=== PATIENT | female | born 1995 | race Caucasian/White ===

== ENCOUNTER → 2017-09-28 | Outpatient (CLI) | payer OTHER ==
[~2017-09-28] MED LIST: METR-1 PO; PREN29TA PO; ZITH1POW PO; ZOFR4TAB PO
== END ==
LOC: HPND 14:11
PROVIDERS: ATTEND Obstetrics & Gynecology
DX: O99.212 Obesity complicating pregnancy, second trimester (principal); E66.01 Morbid (severe) obesity due to excess calories; Z68.41 Body mass index [BMI] 40.0-44.9, adult; O99.322 Drug use complicating pregnancy, second trimester; O34.211 Maternal care for low transverse scar from previous cesarean delivery
CPT/HCPCS: 76811

== ENCOUNTER → 2017-10-27 | Outpatient (CLI) | payer OTHER | LOC: HPND 12:27 | PROVIDERS: ATTEND Obstetrics & Gynecology | DX: O99.322 Drug use complicating pregnancy, second trimester (principal); O99.212 Obesity complicating pregnancy, second trimester; E66.01 Morbid (severe) obesity due to excess calories; Z68.41 Body mass index [BMI] 40.0-44.9, adult; O34.211 Maternal care for low transverse scar from previous cesarean delivery | CPT/HCPCS: 76816; 76825; 76827; 93325 ==

== ENCOUNTER → 2017-12-06 | Outpatient (CLI) | payer OTHER | LOC: HPND 08:32 | PROVIDERS: ATTEND Obstetrics & Gynecology | DX: O99.213 Obesity complicating pregnancy, third trimester (principal); E66.01 Morbid (severe) obesity due to excess calories; Z68.41 Body mass index [BMI] 40.0-44.9, adult; O35.1XX0 Maternal care for (suspected) chromosomal abnormality in fetus, not applicable or unspecified | CPT/HCPCS: 76816 ==

== ENCOUNTER 2017-12-29 13:30 | Observation (INO) ==
[2018-01-01] MEDS ORDERED: CEFTRIAXONE 2000 MG ONE (23:30)
[2018-01-02] MEDS ORDERED: Acetaminophen 325 MG Tablet PO PRN
[2018-01-02] MEDS: Gentamicin Inj 80 MG in Sodium Chlor 0.9% Inj 100 ML IV.SIG SCH ×3 (04:58→20:26)
--- NOTE | 2018-01-02 08:05 | P.OBANTE ---
Subjective Interval History: No acute events overnight. Patient's highest temperature over the last 24 hours is 99.2. Her heart rate is continued to be elevated in the 100s. She states that she feels somewhat better today but still has left flank/left-sided abdominal pain. Otherwise she has no dysuria, chest pain, shortness of breath, nausea or vomiting. Objective Vital Signs and I&O: Vital Signs 01/02/18 05:02 01/02/18 05:03 01/02/18 07:43 Temperature 100.0 F H 99.0 F 98.7 F Pulse Rate 104 H Respiratory Rate 15 16 Blood Pressure 107/41 L 01/02/18 07:50 Temperature Pulse Rate 104 H Respiratory Rate Blood Pressure 93/48 L Intake & Output 01/01/18 01/02/18 01/02/18 18:59 06:59 18:59 Intake Total 102 / 102 Balance 102 / 102 Weight 112 kg Intake: IV 102 / 102 Gentamicin Inj 80 MG In NS Inj 102 / 102 100 ML @ 102 mls/hr IV.SIG Q8H [facility] Rx#:[id number] Lab and Micro Results: Laboratory Results - last 24 hr 12/29/17 12/29/17 12/29/17 10:44 10:44 10:44 WBC 12.6 H RBC 3.59 L Hgb 9.8 L Hct 29.3 L MCV 81.7 MCH 27.4 MCHC 33.5 RDW 15.0 Plt Count 227 MPV 8.0 Neut % (Auto) 78.8 H Lymph % (Auto) 13.8 Pepin % (Auto) 7.0 Eos % (Auto) 0.2 Baso % (Auto) 0.2 Neut # (Auto) 10.0 H Lymph # (Auto) 1.7 Pepin # (Auto) 0.9 Eos # (Auto) 0.0 Baso # (Auto) 0.0 CBC Comment DIFF FINAL Sodium 139 Potassium 3.7 Chloride 108 H Carbon Dioxide 20.0 L Anion Gap 11 BUN 5 L Creatinine 0.56 Estimated GFR 137 Random Glucose 60 L Lactic Acid Calcium 8.4 L Total Bilirubin 0.6 AST 12 L ALT 9 L Alkaline Phosphatase 121 H Total Protein 6.7 Albumin 2.7 L Nasal Screen MRSA (PCR) Urine Opiates Screen NEG Ur Buprenorphine NEG Heroin Level NEG Oxycodone NEG Ur Methadone NEG Ur Hydromorphone NEG Urine Fentanyl NEG Ur Barbiturates Screen NEG Urine Gabapentin NEG Ur Phencyclidine (PCP) NEG Ur MDPV + Mephedrone NEG Ur Amphetamines Screen NEG Ur MDMA & Metabolites NEG U Benzodiazepines Scrn NEG Urine Cocaine Screen NEG U Cannabinoids Screen POS H U Cannabinoids Confirm POS H Ur Synth THC (K2) NEG 12/29/17 12/29/17 12/30/17 15:00 15:02 05:35 WBC RBC Hgb Hct MCV MCH MCHC RDW Plt Count MPV Neut % (Auto) Lymph % (Auto) Pepin % (Auto) Eos % (Auto) Baso % (Auto) Neut # (Auto) Lymph # (Auto) Pepin # (Auto) Eos # (Auto) Baso # (Auto) CBC Comment Sodium 139 Potassium 3.3 L Chloride 107 Carbon Dioxide 20.7 L Anion Gap 11 BUN 3 L Creatinine 0.61 Estimated GFR 124 Random Glucose 93 Lactic Acid 2.0 Calcium 7.5 L D Total Bilirubin AST ALT Alkaline Phosphatase Total Protein Albumin Nasal Screen MRSA (PCR) MRSA NOT DETECTED Urine Opiates Screen Ur Buprenorphine Heroin Level Oxycodone Ur Methadone Ur Hydromorphone Urine Fentanyl Ur Barbiturates Screen Urine Gabapentin Ur Phencyclidine (PCP) Ur MDPV + Mephedrone Ur Amphetamines Screen Ur MDMA & Metabolites U Benzodiazepines Scrn Urine Cocaine Screen U Cannabinoids Screen U Cannabinoids Confirm Ur Synth THC (K2) 12/30/17 12/30/17 12/30/17 05:35 15:10 15:10 WBC 11.1 H 10.4 RBC 3.29 L 3.28 L Hgb 8.9 L 8.8 L Hct 26.7 L 26.4 L MCV 81.1 80.7 MCH 27.2 26.8 L MCHC 33.5 33.2 RDW 15.3 15.1 Plt Count 179 174 MPV 7.9 7.7 Neut % (Auto) 79.8 H Lymph % (Auto) 11.6 Pepin % (Auto) 8.3 H Eos % (Auto) 0.1 Baso % (Auto) 0.2 Neut # (Auto) 8.3 H Lymph # (Auto) 1.2 Pepin # (Auto) 0.9 Eos # (Auto) 0.0 Baso # (Auto) 0.0 CBC Comment DIFF FINAL Sodium Potassium Chloride Carbon Dioxide Anion Gap BUN Creatinine Estimated GFR Random Glucose Lactic Acid 1.4 Calcium Total Bilirubin AST ALT Alkaline Phosphatase Total Protein Albumin Nasal Screen MRSA (PCR) Urine Opiates Screen Ur Buprenorphine Heroin Level Oxycodone Ur Methadone Ur Hydromorphone Urine Fentanyl Ur Barbiturates Screen Urine Gabapentin Ur Phencyclidine (PCP) Ur MDPV + Mephedrone Ur Amphetamines Screen Ur MDMA & Metabolites U Benzodiazepines Scrn Urine Cocaine Screen U Cannabinoids Screen U Cannabinoids Confirm Ur Synth THC (K2) 12/31/17 08:29 WBC RBC Hgb Hct MCV MCH MCHC RDW Plt Count MPV Neut % (Auto) Lymph % (Auto) Pepin % (Auto) Eos % (Auto) Baso % (Auto) Neut # (Auto) Lymph # (Auto) Pepin # (Auto) Eos # (Auto) Baso # (Auto) CBC Comment Sodium Potassium Chloride Carbon Dioxide Anion Gap BUN Creatinine 0.52 Estimated GFR 149 Random Glucose Lactic Acid Calcium Total Bilirubin AST ALT Alkaline Phosphatase Total Protein Albumin Nasal Screen MRSA (PCR) Urine Opiates Screen Ur Buprenorphine Heroin Level Oxycodone Ur Methadone Ur Hydromorphone Urine Fentanyl Ur Barbiturates Screen Urine Gabapentin Ur Phencyclidine (PCP) Ur MDPV + Mephedrone Ur Amphetamines Screen Ur MDMA & Metabolites U Benzodiazepines Scrn Urine Cocaine Screen U Cannabinoids Screen U Cannabinoids Confirm Ur Synth THC (K2) Physical Exam: GENERAL: Well-nourished, well-developed patient. CARDIOVASCULAR: Regular rate and rhythm without murmurs, gallops, or rubs. RESPIRATORY: Breath sounds equal bilaterally. No accessory muscle use. ABDOMEN/GI: Abdomen soft, mild tenderness to palpation in the left upper and lower quadrants. No masses or rebound tenderness appreciated. Left-sided CVA tenderness appreciated. Improved from prior exams. Fundus: 32 weeks GENITOURINARY: External Genitalia: intact and normal in appearance Uterine Contractions: Occasional contractions on the monitor FHT's: Category: 1 Baseline: 140 Reactive: y Variability: Moderate Decels: Absent EXTREMITIES: No cyanosis or edema, non-tender, without signs of DVT. Assessment and Plan - Attending Attestation The patient was seen and evaluated with the resident and I was involved in all martinez decision making. Continue routine care. SMS
[2018-01-02] MEDS: Prenatal Vit/Ca/Iron/Folic Acid Tablet PO SCH (09:00)
[2018-01-03] MEDS: Gentamicin Inj 80 MG in Sodium Chlor 0.9% Inj 100 ML IV.SIG SCH ×3 (04:09→20:46)
[2018-01-03] MEDS: Prenatal Vit/Ca/Iron/Folic Acid Tablet PO SCH (09:02)
--- NOTE | 2018-01-03 09:05 | P.OBANTE ---
Subjective Interval History: No acute events overnight. Pt is feeling less painful than yesterday and pain is well controlled on Roxicodone. Pt has been afebrile >24hours. No other complaints. Objective Vital Signs and I&O: Vital Signs 01/02/18 11:59 01/02/18 12:00 01/02/18 15:10 Temperature 98.5 F 98.3 F Pulse Rate 107 H Respiratory Rate 16 Blood Pressure 88/48 L 01/02/18 15:15 01/02/18 19:20 01/02/18 19:21 Temperature 99.9 F H Pulse Rate 114 H 106 H Respiratory Rate 16 17 Blood Pressure 98/55 L 95/61 L 01/02/18 23:42 01/03/18 04:15 01/03/18 04:16 Temperature 99.0 F 98.5 F Pulse Rate 99 H Respiratory Rate 19 16 Blood Pressure 97/50 L 01/03/18 04:18 01/03/18 05:30 01/03/18 07:42 Temperature 98.4 F Pulse Rate 106 H 104 H Respiratory Rate 18 Blood Pressure 74/44 L 88/54 L 01/03/18 07:43 Temperature Pulse Rate 92 H Respiratory Rate Blood Pressure 87/52 L Intake & Output 01/02/18 01/03/18 01/03/18 18:59 06:59 18:59 Intake Total 100 / 100 406 / 406 Balance 100 / 100 406 / 406 Intake: IV 100 / 100 406 / 406 Gentamicin Inj 80 MG In NS Inj 306 / 306 100 ML @ 102 mls/hr IV.SIG Q8H [facility] Rx#:[id number] Rocephin Inj 2,000 MG In NS Inj 100 / 100 100 / 100 100 ML @ 200 mls/hr IV.SIG Q12H [facility] Rx#:[id number] Physical Exam: GENERAL: Well-nourished, well-developed patient. CARDIOVASCULAR: Regular rate and rhythm without murmurs, gallops, or rubs. RESPIRATORY: Breath sounds equal bilaterally. No accessory muscle use. ABDOMEN/GI: Abdomen soft, non-tender. GENITOURINARY: External Genitalia: deferred Cervix: closed Dilatation: 0 Effacement: 0 Station: -2 Presentation: vtx Membranes: intact Uterine Contractions: absent FHT's: Category: 1 Baseline: 120 Reactive: yes Variability: moderate Decels: absent EXTREMITIES: No cyanosis or edema, non-tender, without signs of DVT. Assessment and Plan - Diagnosis (1) Pyelonephritis affecting in third trimester Code(s): O23.03 - Infections of kidney in , third trimester Status: Acute Plan: 22-year-old at 32/5 weeks gestation admitted for acute pyelonephritis 1. IUP - heart tones category 1 -Baseline heart rate 140 2. Acute pyelonephritis with flank pain -Urinalysis on admission significant for small occult blood, moderate leukocyte esterase, occasional WBC clumps, few bacteria, and innumerable WBCs * Urine culture growing gram-negative rods. pansensitive aside from being resistant to ampicillin * Blood cultures no growth 3 day -Continue 1g Rocephin IV, started gentamicin IV. -T-max of 99.2 -Patient continues to have some flank pain and elevated temperatures. Will likely discharge on 01/03 UDS positive for marijuana -Regular diet -NSTs Qshift - Plan 22-year-old at 32/6 weeks gestation admitted for acute pyelonephritis. Pain has decreased but is still significant 1. IUP - heart tones category 1 -Baseline heart rate 120 2. Acute pyelonephritis with flank pain -Urinalysis on admission significant for small occult blood, moderate leukocyte esterase, occasional WBC clumps, few bacteria, and innumerable WBCs * Urine culture growing gram-negative rods. Pansensitive except got ampicillin resistance * Blood cultures no growth 4 days -Continue Rocephin 1g IV q24h -Continue Gentamicin 80mg IV q8h -Patient continues to have some flank pain but has been afebrile >24hours -Plan to keep one more day until flank pain is decreased UDS positive for marijuana -Regular diet -NSTs Qshift Discharge Planning: Likely 01/04/18
[2018-01-04] MEDS: Gentamicin Inj 80 MG in Sodium Chlor 0.9% Inj 100 ML IV.SIG SCH (04:41)
[2018-01-04] MEDS: Prenatal Vit/Ca/Iron/Folic Acid Tablet PO SCH (09:00)
--- NOTE | 2018-01-04 09:56 | P.OBANTE ---
Subjective Interval History: Ms. Cruz had no problems overnight. She reports that her pain and nausea are much improved and she has an appetite this morning. She reports that there is no longer burning on urination. She has had no diarrhea. She feels well enough to go home. Objective Vital Signs and I&O: Vital Signs 01/03/18 11:51 01/03/18 11:52 01/03/18 11:56 Temperature 98.4 F Pulse Rate 98 H Respiratory Rate 18 18 Blood Pressure 84/50 L 01/03/18 16:44 01/03/18 17:02 01/03/18 19:35 Temperature 99.1 F 98.2 F Pulse Rate 100 H 107 H Respiratory Rate 18 18 18 Blood Pressure 100/59 L 98/55 L 01/03/18 19:43 01/03/18 23:52 01/04/18 00:00 Temperature 98.2 F 98.1 F 98.1 F Pulse Rate 100 H Respiratory Rate 16 Blood Pressure 98/46 L 01/04/18 03:49 01/04/18 04:46 01/04/18 04:48 Temperature 98.1 F Pulse Rate 104 H Respiratory Rate 16 18 Blood Pressure 99/48 L 01/04/18 07:31 Temperature 99.2 F Pulse Rate 108 H Respiratory Rate 18 Blood Pressure 96/51 L Intake & Output 01/03/18 01/04/18 01/04/18 18:59 06:59 18:59 Intake Total 202 / 202 204 / 204 Output Total 900 / 900 Balance / -696 / -696 Intake: IV 202 / 202 204 / 204 Gentamicin Inj 80 MG In NS Inj 102 / 102 204 / 204 100 ML @ 102 mls/hr IV.SIG Q8H [facility] Rx#:[id number] Rocephin Inj 2,000 MG In NS Inj 100 / 100 100 ML @ 200 mls/hr IV.SIG Q12H [facility] Rx#:[id number] Output: Urine 900 / 900 Physical Exam: GENERAL: Well-nourished, well-developed patient. CARDIOVASCULAR: Regular rate and rhythm without murmurs, gallops, or rubs. RESPIRATORY: Breath sounds equal bilaterally. No accessory muscle use. ABDOMEN/GI: Abdomen soft, non-tender. GENITOURINARY: No CVA tenderness. Pelvic and genital exam deferred FHT's: Category: 1 Baseline: 140 Reactive: yes Variability: moderate Decels: no EXTREMITIES: No cyanosis or edema, non-tender, without signs of DVT. Trace edema bilaterally. Assessment and Plan - Plan 22-year-old at 32/6 weeks gestation admitted for acute pyelonephritis. Pain has decreased but is still significant 1. IUP - heart tones category 1 -Baseline heart rate 140 2. Acute pyelonephritis with flank pain -Urinalysis on admission significant for small occult blood, moderate leukocyte esterase, occasional WBC clumps, few bacteria, and innumerable WBCs * Urine culture growing gram-negative rods. Pansensitive except got ampicillin resistance * Blood cultures no growth 4 days -T max of 99.1 -Flank pain much improved, no CVA tenderness on exam -Switch to PO medications- Macrobid 100mgBID for 7 days then Macrodantin 50mg daily for the remainder of -Plans for d/c today UDS positive for marijuana -Regular diet Discharge Planning: Plans for d/c home today - Attending Attestation The patient was seen and examined by me and I performed all martinez portions of the decision making. FHR reassuring, pyelonephritis has improved. The patient is aware she will need to complete an antibiotic course to be followed by daily prophylaxis until delivers. All of the patient's questions were answered.
== END 2018-01-04 11:17 | disposition home or self-care (01) ==
LOC: H2E 13:30
PROVIDERS: ADMIT Obstetrics & Gynecology; ATTEND Obstetrics & Gynecology

== ENCOUNTER 2018-02-15 08:05 | Inpatient (IN) ==
[2018-02-15] MEDS ORDERED: Citric Acid/Sodium Citrate Liq 30 ML UDC PO SCH (09:00)
[2018-02-15 09:14] LABS: Baso % (Auto) 0.2 % (0.0-2.0); Eos # (Auto) 0.1 th/mm3 (0.0-0.4); Eos % (Auto) 0.7 % (0.0-4.0); Hematocrit 32.1 % (35.0-46.0); Hemoglobin 10.5 gm/dL (11.6-15.3); Lymph # (Auto) 2.9 th/mm3 (1.0-4.8); Lymph % (Auto) 25.2 % (9.0-44.0); Mean Corpuscular HGB Conc 32.9 % (32.0-36.0); Mono # (Auto) 0.6 th/mm3 (0.0-0.9); Mono % (Auto) 5.2 % (0.0-8.0); Neut # (Auto) 7.8 th/mm3 (1.8-7.7); Neut % (Auto) 68.7 % (16.0-70.0); Platelet Count 263 th/mm3 (150-450); Red Blood Count 4.22 mil/mm3 (4.00-5.30); Red Cell Distribution Width 16.9 % (11.6-17.2); White Blood Count 11.4 th/mm3 (4.0-11.0)
[2018-02-15] MEDS ORDERED: Morphine Sulfate PF Inj 5 MG/10 ML Ampul ONE (09:24)
[2018-02-15 09:36] LABS: Bacteria,Urine Rare /hpf; Bilirubin,Urine Negative (Negative); Clarity,Urine Hazy (Clear); Color,Urine Yellow (Yellw/Straw); Glucose,Urine (UA) Negative (Negative); Leukocyte Esterase,Urine Negative (Negative); Mucus,Urine Few /lpf (Occasional); Nitrite,Urine Negative (Negative); Specific Gravity,Urine 1.021 (1.002-1.035); Squamous Epithelial Cell,Urine 10 /hpf (0-5)
--- NOTE | 2018-02-15 09:53 | P.HPOB ---
History of Present Illness Primary Care Physician: No Primary Care Physician History of Present Illness: 22 yr at 39 weeks gestation with history of prior that presents for schedules . She has been receiving care with [facility]. She reports no complications with this . Endorses good movement. She denies leakage of fluid, vaginal bleeding, vaginal discharge. Reports that she is GBS negative. ObHx: , first c-sectioned due to macrosomia. PMH: Treat one month ago for pyelonephritis and finished her antibiotic course. Nephroliths. Cholelithiasis. FHx: Brother has asthma. Hosp: C-sections, pyelonephritis, cholecystectomy, surgical removal of renal stones. Surgical Hx: C-sections, pyelonephritis, cholecystectomy, surgical removal of renal stones. Meds: None to include vitamins. Alergies: None. Weeks Gestation:: 39 Para: 2 : 4 Total # of Miscarriage(s): 1 Total # of Abortions (Spontaneous & Elective): 0 - Inpatient Certification I certify that the inpatient services were ordered in accordance with Medicare regulations governing the order. This includes certification that hospital inpatient services are reasonable and necessary and in the case of services not specified as inpatient-only under 42 CFR 419.22(n), that they are appropriately provided as inpatient services in accordance to with the 2-midnight benchmark under 43 CFR 412.3(e) Estimated Total Length of Stay (Days): 2 Plans for Post Hospital Care: Home Review of Systems Constitutional: Denies chills, Denies fever(s), Denies headache(s), Denies weakness Eyes: Denies blurry vision, Denies change in vision Cardiovascular: Denies chest pain, Denies irregular heart rhythm, Denies leg swelling, Denies shortness of breath, Denies shortness of breath with activity Respiratory: Denies chest congestion, Denies shortness of breath, Denies shortness of breath with activity Gastrointestinal: Denies abdominal pain, Denies constipation, Denies loose stools, Denies nausea, Denies vomiting Genitourinary: Denies blood in urine, Denies difficulty urinating, Denies painful urination, Denies vaginal discharge Neurologic: Denies abnormal movements, Denies abnormal speech, Denies dizziness , Denies headache(s) PMFSH - Surgical History Surgical History: Surgical History (Last Updated 01/27/18 @ 23:53 by Michelle Alexis MD) Cholecystectomy planned H/O lithotripsy Previous section - Tobacco History Smoking Status: Never smoker - Alcohol History How Often Do You Have a Drink Containing Alcohol: Never (during ) - Substance Use History Substance History: No History of Abuse - Travel History Recent Travel in the [facility] Within the Last 8 Weeks: No Recent Travel Out of the Country Within the Last 8 Weeks: No Medications and Allergies Active Medications: Active Medications Citric Acid/Sodium Citrate (Sodium Citrate/Citric Acid Liq) 30 ml PO SPINNING FRAME [employer] [facility] Stop: 02/19/18 08:59 Lactated Ringer's (Lr 1000 Ml Inj) 1,000 mls @ 150 mls/hr IV.CONT .Q6H40M [facility] Cefazolin Sodium 2,000 mg/ (Sodium Chloride) 100 mls @ 200 mls/hr IV.SIG SPINNING [employer] [facility] Stop: 02/19/18 09:59 Allergies Allergy/AdvReac Type Severity Reaction Status Date / Time No Known Drug Allergies Allergy NONE Verified 01/02/18 05:57 Home Medications Medication Instructions Recorded Confirmed Type No Known Home Medications 01/28/18 02/15/18 History Exam Vital signs: Vital Signs 02/15/18 08:29 02/15/18 08:30 02/15/18 08:45 Temperature 98.4 F Pulse Rate 88 Respiratory Rate 16 Blood Pressure 110/67 Intake & Output 02/14/18 02/15/18 02/15/18 18:59 06:59 18:59 Weight 113.398 kg Other: Weight On Admission 113.451 kg Narrative: GENERAL: Well-nourished, well-developed patient. SKIN: Warm and dry. HEAD: Normocephalic and atraumatic. EYES: No scleral icterus. No injection or drainage. ENT: No nasal drainage noted. Mucous membranes pink. Airway patent. NECK: Supple, trachea midline. No JVD. CARDIOVASCULAR: Regular rate and rhythm without murmurs, gallops, or rubs. RESPIRATORY: Breath sounds equal bilaterally. No accessory muscle use. ABDOMEN/GI: Abdomen soft, non-tender, bowel sounds present, no rebound, no guarding Gravid to 39 weeks size FHT's: Category: 1 Baseline: 125 Reactive: Yes Variability: Moderate Decels: None EXTREMITIES: No cyanosis or edema. BACK: Nontender without obvious deformity. No CVA tenderness. NEUROLOGICAL: Awake and alert. Motor and sensory grossly within normal limits. Normal speech. - Constitutional no acute distress, cooperative - Routine HEENT Exam Head: Present: normocephalic, atraumatic Eye: Present: EOMI Results - Labs CBC & Chem 7: 02/15/18 08:25 Labs: Laboratory Results - last 24 hr 02/15/1818 02/15/18 08:25 08:25 08:25 WBC 11.4 H RBC 4.22 Hgb 10.5 L Hct 32.1 L MCV 76.0 L MCH 25.0 L MCHC 32.9 RDW 16.9 Plt Count 263 MPV 8.0 Neut % (Auto) 68.7 Lymph % (Auto) 25.2 Davie % (Auto) 5.2 Eos % (Auto) 0.7 Baso % (Auto) 0.2 Neut # (Auto) 7.8 H Lymph # (Auto) 2.9 Davie # (Auto) 0.6 Eos # (Auto) 0.1 Baso # (Auto) 0.0 WBC Differential . Differential Comment Auto diff final Urine Color Yellow Urine Clarity Hazy H Urine pH 6.0 Ur Specific Downs 1.021 Urine Protein Negative Urine Glucose (UA) Negative Urine Ketones 20 Urine Occult Blood Negative Urine Nitrate Negative Urine Bilirubin Negative Urine Urobilinogen 2.0 H Ur Leukocyte Esterase Negative Urine RBC Less than 1 Urine WBC 2 Ur Squamous Epith Cells 10 Urine Bacteria Rare H Urine Mucus Few H Micro UA Comment Culture not ind Urine Culture Comments Culture not ind Blood Type A Positive Caprini VTE Risk Assessment Caprini VTE Risk Assessment: No/Low Risk (score <= 1) Caprini Risk Assessment Model: Point Value = 1 Point Value = 2 Point Value = 3 Point Value = 5 Age 41-60 Minor surgery BMI > 25 kg/m2 Swollen legs Varicose veins or History of unexplained or recurrent spontaneous Oral contraceptives or hormone replacement Sepsis (< 1 month) Serious lung disease, including pneumonia (< 1 month) Abnormal pulmonary function Acute myocardial infarction Congestive heart failure (< 1 month) History of inflammatory bowel disease Medical patient at bed rest Age 61-74 Arthroscopic surgery Major open surgery (> 45 min) Laparoscopic surgery (> 45 min) Malignancy Confined to bed (> 72 hours) Immobilizing plaster cast Central venous access Age >= 75 History of VTE Family history of VTE Factor V Leiden Prothrombin [id number] Lupus anticoagulant Anticardiolipin antibodies Elevated serum homocysteine Heparin-induced thrombocytopenia Other congenital or acquired thrombophilia Stroke (< 1 month) Elective arthroplasty Hip, pelvis, or leg fracture Acute spinal cord injury (< 1 month) Prophylaxis Regimen: Total Risk Factor Score Risk Level Prophylaxis Regimen 0-1 Low Early ambulation 2 Moderate Order ONE of the following: *Sequential Compression Device (SCD) *Heparin 5000 units SQ BID 3-4 Higher Order ONE of the following medications: *Heparin 5000 units SQ TID *Enoxaparin/Lovenox 40 mg SQ daily (WT < 150 kg, CrCl > 30 mL/min) *Enoxaparin/Lovenox 30 mg SQ daily (WT < 150 kg, CrCl > 10-29 mL/min) *Enoxaparin/Lovenox 30 mg SQ BID (WT < 150 kg, CrCl > 30 mL/min) AND/OR *Sequential Compression Device (SCD) 5 or more Highest Order ONE of the following medications: *Heparin 5000 units SQ TID (Preferred with Epidurals) *Enoxaparin/Lovenox 40 mg SQ daily (WT < 150 kg, CrCl > 30 mL/min) *Enoxaparin/Lovenox 30 mg SQ daily (WT < 150 kg, CrCl > 10-29 mL/min) *Enoxaparin/Lovenox 30 mg SQ BID (WT < 150 kg, CrCl > 30 mL/min) AND *Sequential Compression Device (SCD) Assessment and Plan - Diagnosis (1) Previous delivery affecting Code(s): O34.219 - Maternal care for unspecified type scar from previous delivery Status: Acute Plan: 22 yr at 39 weeks gestation with history of prior that presents for scheduled on 02/15/18. -- Section --Monitor H/H --Continue routine care --Motrin and Percocet when necessary for pain --Encourage Ambulation --Pelvic rest for 6 weeks will need follow-up appointment at that time. --Anticipate discharge in 48 hours (2) Nutrition, metabolism, and development symptoms Code(s): R63.8 - Other symptoms and signs concerning food and fluid intake Status: Acute Plan: Fluids: Not indicated at this time Electrolytes: Replete as needed Nutrition: NPO
[2018-02-15] MEDS ORDERED: ceFAZolin Inj 2,000 MG in Sodium Chlor 0.9% Inj 80 ML IV.SIG SCH (10:00)
[2018-02-15 10:03] LABS: Amphetamine Screen,Urine Neg (Neg); Barbiturate Screen,Urine Neg (Neg); Cannabinoid Screen,Urine Pos (Neg); Cocaine Screen,Urine Neg (Neg)
[2018-02-15 10:07] LABS: Opiate Screen,Urine Neg (Neg)
[2018-02-15] MEDS ORDERED: fentaNYL Citrate Inj 100 MCG/2 ML Ampul ONE (11:42)
[2018-02-15] MEDS ORDERED: Phenylephrine/NS 1000 MCG/10ML Syringe IV.PUSH ONE (12:00)
[2018-02-15] MEDS ORDERED: Oxytocin 30 Units/500ml Premix 30 UNITS/500 ML BAG IV.SIG ONE (12:30)
[2018-02-15] MEDS ORDERED: Simethicone 80 MG Chew Tablet PO PRN (12:30)
--- NOTE | 2018-02-15 12:39 | P.OP ---
- Preoperative Diagnosis (1) Previous delivery affecting - Postoperative Diagnosis (1) Previous delivery affecting Date of procedure: 02/15/18 Procedure: Repeat low transverse section Anesthesia: spinal Surgeon: Jadon Lilly MD Estimated blood loss (mL): 1,000 IV fluids (mL): 1,000 Urine output (mL): 100 Operation and Findings: Patient taken operating room and placed supine to stopping table and adequate spinal anesthesia administered she is prepped and draped for abdominal surgery. Then a Pfannenstiel incision was made in the Remicade fashion up the fascia dissected off the rectus muscle and there is a lot of scar tissue from previous sections. Bovie cautery used to dissect these tissues. The the rectus was reflected off the fascia and the incision extended superior and anteriorly. Bladder blade placed lower his incision. The visceral peritoneum reflected down off the lower uterine segment and in doing so a vessel near the bladder was lacerated and there was moderate amount of bleeding from that. The vein near the bladder that was punctured however only to the bladder was down far enough that we can make her transverse incisions a transverse hysterotomy extended bluntly bilaterally and the was delivered from vertex presentation using a Kiwi vacuum to bring the head into the incision and a delivered easily. Baby was female infant weight 3515 g Apgars 8/ 9 delivered at 11:17 AM without complication, delayed cord clamping done. The cord blood obtained. Placenta manually extracted without difficulty. The uterus exteriorized. Hysterotomy closed in a running layer of chromic, imbricating suture same and hemostasis achieved with a stick tie. At that point we made an effort to identify any bleeding near the bladder edge for that vessel been injured C no active bleeding. Seem to time but not often may be clotted off. We put Hemant in the area and sheets of Interceed there and over the incision. The uterus and placed peritoneal cavity the ovaries and tubes within normal limits the gutters and cul-de-sac suction of blood and attempt made to identify any bleeding. Hemostasis seemed to be achieved with there was a lot of run down to of just bloody peritoneal fluid. The fascia was then closed in a running layer of 0 Vicryl to the mcfp point and a Corby-Doe drain was put into the peritoneal cavity below the fascia and brought out through a skin incision on the right side placed closed system drainage. Remainder the fascia was then closed subcutaneous tissues reapproximated with 3-0 plain catgut running suture and the skin closed with 3-0 Monocryl subcuticular stitch. Steri -Strips and pressure dressing applied. Estimated blood loss 2000 cc and the sponge needle correct 2 and the patient recovery in stable condition.
[2018-02-15] MEDS ORDERED: Oxytocin 30 Units/500ml Premix 30 UNITS/500 ML BAG ONE (13:27)
[2018-02-15] MEDS ORDERED: Naloxone Inj 0.4 MG/ML Vial IV.PUSH PRN (16:14)
[2018-02-15] MEDS ORDERED: Oxytocin 30 Units/500ml Premix 30 UNITS/500 ML BAG IV.SIG PRN (17:31)
[2018-02-15] MEDS: ceFAZolin Inj 2,000 MG in Sodium Chlor 0.9% Inj 80 ML IV.SIG SCH (18:04)
[2018-02-15] MEDS: Ibuprofen 600 MG Tablet PO PRN (23:59)
[2018-02-16] MEDS: ceFAZolin Inj 2,000 MG in Sodium Chlor 0.9% Inj 80 ML IV.SIG SCH (01:59)
[2018-02-16 05:55] LABS: Baso % (Auto) 0.3 % (0.0-2.0); Eos # (Auto) 0.1 th/mm3 (0.0-0.4); Eos % (Auto) 0.6 % (0.0-4.0); Hematocrit 27.4 % (35.0-46.0); Hemoglobin 9.1 gm/dL (11.6-15.3); Lymph # (Auto) 1.7 th/mm3 (1.0-4.8); Lymph % (Auto) 16.3 % (9.0-44.0); Mean Corpuscular HGB Conc 33.1 % (32.0-36.0); Mean Corpuscular Hemoglobin 25.4 pg (27.0-34.0); Mean Corpuscular Volume 76.8 fL (80.0-100.0); Mono # (Auto) 0.6 th/mm3 (0.0-0.9); Mono % (Auto) 5.4 % (0.0-8.0); Neut # (Auto) 7.9 th/mm3 (1.8-7.7); Neut % (Auto) 77.4 % (16.0-70.0); Platelet Count 179 th/mm3 (150-450); Red Blood Count 3.57 mil/mm3 (4.00-5.30); Red Cell Distribution Width 16.6 % (11.6-17.2); White Blood Count 10.3 th/mm3 (4.0-11.0)
[2018-02-16] MEDS: Ibuprofen 600 MG Tablet PO PRN ×3 (06:18→22:29)
--- NOTE | 2018-02-16 08:25 | P.PNOB ---
Subjective Post op day: 1 Interval history: She is seen and examined bedside this morning. Patient has been tolerating clear liquids and she is hungry and ready for a full diet. No nausea or vomiting. Catheter is removed, and patient has been ambulating and voiding without difficulty. Patient has not yet passed gas or had a bowel movement. She denies any chest pain or shortness of breath. Denies any dizziness. Objective Vital Signs/I&O: Vital Signs 02/15/18 08:29 02/15/18 08:30 02/15/18 08:45 Temperature 98.4 F Pulse Rate 88 Respiratory Rate 16 Blood Pressure 110/67 02/15/18 12:42 02/15/18 12:48 02/15/18 13:00 Temperature 98.1 F Pulse Rate 75 70 Respiratory Rate 18 13 Blood Pressure 111/55 L 117/58 L 02/15/18 13:01 02/15/18 13:11 02/15/18 13:16 Temperature Pulse Rate 83 Respiratory Rate 18 Blood Pressure 96/64 L 98/56 L 02/15/18 13:23 02/15/18 13:30 02/15/18 13:32 Temperature 97.9 F Pulse Rate 69 Respiratory Rate 15 Blood Pressure 103/53 L 02/15/18 20:05 02/16/18 00:00 02/16/18 04:05 Temperature 98.3 F 98.4 F 98.3 F Pulse Rate 90 90 79 Respiratory Rate 18 18 18 Blood Pressure 94/72 L 106/60 100/55 L Intake & Output 02/15/18 02/16/18 02/16/18 18:59 06:59 18:59 Intake Total 1100 / 1100 Balance 1100 / 1100 Weight 113.398 kg Intake: IV 1100 / 1100 LR 1000 mL Inj 1,000 ML @ 150 1000 / 1000 mls/hr IV.CONT .Q6H40M JOSE MIGUEL Rx#: [id number] Ancef Inj 2,000 MG In NS Inj 80 100 / 100 ML @ 200 mls/hr IV.SIG Q8H JOSE MIGUEL Rx#:[id number] Other: Weight On Admission 113.451 kg Result Diagrams: 02/16/18 05:03 Objective Remarks: GENERAL: Well-nourished, well-developed patient. CARDIOVASCULAR: Regular rate and rhythm without murmurs, gallops, or rubs. RESPIRATORY: Breath sounds equal bilaterally. No accessory muscle use. ABDOMEN/GI: Abdomen soft, non-tender, bowel sounds present. Incision: Pressure dressing overlies incision. No drainage from incision. Drain is in place, with 3 cc of serosanguineous output. Fundus: Firm, non-tender at umbilicus. GENITOURINARY: Light to moderate bleeding. EXTREMITIES: No cyanosis or edema, non-tender, without signs of DVT. Medications and IVs: Active Medications Citric Acid/Sodium Citrate (Sodium Citrate/Citric Acid Liq) 30 ml PO [employer]ELD [employer] [facility] Stop: 02/19/18 08:59 Last Admin: 02/15/18 10:24 Dose: 30 ml Diphenhydramine HCl (Benadryl Inj) 25 mg IV.PUSH Q6H PRN PRN Reason: MILD TO MODERATE ITCHING Stop: 02/16/18 16:13 Last Admin: 02/15/18 17:01 Dose: 25 mg Diphenhydramine HCl (Benadryl) 50 mg PO Q6H PRN PRN Reason: MILD TO MODERATE ITCHING Stop: 02/16/18 16:13 Diphtheria/Pertussis/Tetanus Vacc (Boostrix Vaccine Inj) 0.5 ml IM .ONCE ONE Stop: 02/16/18 16:01 Lactated Ringer's (Lr 1000 Ml Inj) 1,000 mls @ 150 mls/hr IV.CONT .Q6H40M [facility] Last Admin: 02/15/18 23:36 Dose: 150 mls/hr Cefazolin Sodium 2,000 mg/ (Sodium Chloride) 100 mls @ 200 mls/hr IV.SIG [employer] [facility] Stop: 02/19/18 09:59 Lactated Ringer's (Lr 1000 Ml Inj) 1,000 mls @ 100 mls/hr IV.CONT .Q10H [facility] Stop: 02/16/18 13:30 Last Admin: 02/16/18 05:05 Dose: Not Given Oxytocin (Pitocin 30 Units/Ns 500 Ml Premix) 30 units in 500 mls @ 100 mls/hr IV.SIG PRN PRN PRN Reason: Heavy bleeding Stop: 02/16/18 17:30 Ibuprofen (Motrin) 600 mg PO Q6HR PRN PRN Reason: cramping Last Admin: 02/16/18 06:18 Dose: 600 mg Ketorolac Tromethamine (Toradol Inj) 30 mg IM Q6H PRN PRN Reason: SEE LABEL COMMENTS Measles/Mumps/Rubella Vaccine Live (M-M-R Ii Vaccine Inj) 0.5 ml SQ .ONCE ONE Stop: 02/16/18 16:01 Miscellaneous Information ([facility] Information) 1 each OTHER UNSCH PRN PRN Reason: SEE LABEL COMMENTS Stop: 02/16/18 16:13 Miscellaneous Information ([facility] Nursing Information) 1 each OTHER UNSCH PRN PRN Reason: SEE LABEL COMMENTS Stop: 02/16/18 16:13 Naloxone HCl (Narcan Inj) 0.4 mg IV.PUSH UNSCH PRN PRN Reason: SEE LABEL COMMENTS Stop: 02/16/18 16:13 Ondansetron HCl (Zofran Inj) 4 mg IV.PUSH Q6H PRN PRN Reason: NAUSEA OR VOMITING Last Admin: 02/15/18 16:42 Dose: 4 mg Oxycodone/Acetaminophen (Percocet 5/325 Mg) 1 tab PO Q4H PRN PRN Reason: PAIN SCALE 3 TO 5 Oxycodone/Acetaminophen (Percocet 5/325 Mg) 2 tab PO Q4H PRN PRN Reason: PAIN SCALE 6 TO 10 Last Admin: 02/16/18 06:19 Dose: 2 tab Simethicone (Mylicon Chew) 80 mg PO QID PRN PRN Reason: FLATULENCE Sodium Chloride (Ns Flush) 2 ml IV.FLUSH PRN PRN PRN Reason: FLUSH AFTER USING IV ACCESS Sodium Chloride (Ns Flush) 2 ml IV.FLUSH BID JOSE MIGUEL Last Admin: 02/16/18 02:01 Dose: Not Given Assessment and Plan - Diagnosis (1) Previous delivery affecting Code(s): O34.219 - Maternal care for unspecified type scar from previous delivery Status: Acute Plan: 22 yr at 39 weeks gestation with history of prior that presents for scheduled on 02/15/18, now pod #1. --Hemoglobin stable --Continue routine care --Motrin and Percocet when necessary for pain --Continue to encourage Ambulation --Advance diet as tolerated --Pelvic rest for 6 weeks will need follow-up appointment at that time. --Continue to follow drain output, will likely remove drain tomorrow --Continue to certified substance abuse counselor on contraceptive options, patient considering Depo injection --Anticipate discharge on pod #3 (2) Nutrition, metabolism, and development symptoms Code(s): R63.8 - Other symptoms and signs concerning food and fluid intake Status: Acute - Plan The exam, history, and the medical decision-making described in the above note were completed with the assistance of the resident physician. I reviewed and agree with the findings presented. I attest that I had a [id number] encounter with the patient on the same day, and personally performed and documented my assessment and findings in the medical record.
[2018-02-16] MEDS ORDERED: medroxyPROGESTERone Acetate Inj 150 MG/ML Syringe IM ONE (09:41)
[2018-02-16] MEDS ORDERED: Measles/Mumps/Rubella Vaccine Inj 0.5 ML Vial SQ ONE (16:00)
[2018-02-16] MEDS ORDERED: Diphtheria/Tetanus/Pertussis Vaccine Inj 0.5 ML Syringe IM ONE (16:00)
[2018-02-17] MEDS: Ibuprofen 600 MG Tablet PO PRN ×3 (04:34→21:21)
--- NOTE | 2018-02-17 08:44 | P.PNOB ---
Subjective Post op day: 2 Interval history: Patient seen and examined bedside this morning. Patient tolerating regular diet , no nausea/vomiting. Patient has not yet passed gas. She has been voiding without difficulties. No acute events overnight. No fever/chills. No chest pain/shortness of breath/dizziness. Denies calf tenderness. [place]ST[place] drainage has remained very minimal. Objective Vital Signs/I&O: Vital Signs 02/16/18 08:49 02/16/18 12:00 02/16/18 16:00 Temperature 98.3 F 98.9 F Pulse Rate 16 L 82 Respiratory Rate 18 18 Blood Pressure 97/61 L 101/58 L 99/60 L 02/16/18 20:05 02/17/18 08:00 Temperature 98.4 F 98.3 F Pulse Rate 82 83 Respiratory Rate 18 18 Blood Pressure 96/55 L 107/73 Result Diagrams: 02/16/18 05:03 Objective Remarks: GENERAL: Well-nourished, well-developed patient. CARDIOVASCULAR: Regular rate and rhythm without murmurs, gallops, or rubs. RESPIRATORY: Breath sounds equal bilaterally. No accessory muscle use. ABDOMEN/GI: Abdomen soft, non-tender, hypoactive bowel sounds. Incision: Pressure dressing removed, incision clean dry and intact with Steri -Strips in place. WESTON drain removed without any complications. Excellent hemostasis. Fundus: Firm, non-tender at umbilicus. GENITOURINARY: Light to moderate bleeding. EXTREMITIES: No cyanosis or edema, non-tender, without signs of DVT. 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 [facility] Stop: 02/19/18 08:59 Last Admin: 02/15/18 10:24 Dose: 30 ml Lactated Ringer's (Lr 1000 Ml Inj) 1,000 mls @ 150 mls/hr IV.CONT .Q6H40M [facility] Last Admin: 02/17/18 05:45 Dose: Not Given Cefazolin Sodium 2,000 mg/ (Sodium Chloride) 100 mls @ 200 mls/hr IV.SIG [employer] ASSESS[employer] [facility] Stop: 02/19/18 09:59 Ibuprofen (Motrin) 600 mg PO Q6HR PRN PRN Reason: cramping Last Admin: 02/17/18 04:34 Dose: 600 mg Ketorolac Tromethamine (Toradol Inj) 30 mg IM Q6H PRN PRN Reason: SEE LABEL COMMENTS Ondansetron HCl (Zofran Inj) 4 mg IV.PUSH Q6H PRN PRN Reason: NAUSEA OR VOMITING Last Admin: 02/15/18 16:42 Dose: 4 mg Oxycodone/Acetaminophen (Percocet 5/325 Mg) 1 tab PO Q4H PRN PRN Reason: PAIN SCALE 3 TO 5 Oxycodone/Acetaminophen (Percocet 5/325 Mg) 2 tab PO Q4H PRN PRN Reason: PAIN SCALE 6 TO 10 Last Admin: 02/17/18 04:34 Dose: 2 tab Simethicone (Mylicon Chew) 80 mg PO QID PRN PRN Reason: FLATULENCE Sodium Chloride (Ns Flush) 2 ml IV.FLUSH PRN PRN PRN Reason: FLUSH AFTER USING IV ACCESS Sodium Chloride (Ns Flush) 2 ml IV.FLUSH BID JOSE MIGUEL Last Admin: 02/16/18 23:23 Dose: Not Given Assessment and Plan - Diagnosis (1) Previous delivery affecting Code(s): O34.219 - Maternal care for unspecified type scar from previous delivery Status: Acute Plan: 22 yr at 39 weeks gestation with history of prior that presents for scheduled on 02/15/18, now pod #1. --Hemoglobin stable --Continue routine care --Motrin and Percocet when necessary for pain --Continue to encourage Ambulation --Ordered Dulcolax, Colace, milk of mag to encourage BM --Continue regular diet --Pelvic rest for 6 weeks will need follow-up appointment at that time. --Drain removed --Status post Depo injection on 02/16 --Okay for DC if patient passes gas today, otherwise plan for DC tomorrow (2) Nutrition, metabolism, and development symptoms Code(s): R63.8 - Other symptoms and signs concerning food and fluid intake Status: Acute Plan: Fluids: Not indicated at this time Electrolytes: Replete as needed Nutrition: NPO
[2018-02-17] MEDS ORDERED: Bisacodyl 10 MG Supp RECTAL ONE (08:45)
[2018-02-17] MEDS: Docusate Sodium 100 MG Capsule PO SCH ×2 (09:11→21:21)
[2018-02-18] MEDS: Ibuprofen 600 MG Tablet PO PRN ×2 (04:42→10:40)
[2018-02-18 07:53] VITALS: BP 111/60
[2018-02-18 07:54] VITALS: PULSE 76; RESP 20; TEMP 98.4
[2018-02-18] MEDS: Docusate Sodium 100 MG Capsule PO SCH (08:47)
--- NOTE | 2018-02-18 09:17 | P.PNOB ---
Subjective Interval history: Patient is a 22-year-old POD3. Patient seen and examined bedside this morning. Patient tolerating regular diet, no nausea/vomiting. She has been voiding without difficulties. No acute events overnight. No chest pain/ shortness of breath/dizziness. Denies calf tenderness. Denies nausea, vomiting , fevers, or chills. Patient reports minimal tenderness around incision site. Objective Vital Signs/I&O: Vital Signs 02/17/18 20:05 02/18/18 07:52 Temperature 98.5 F 98.4 F Pulse Rate 85 76 Respiratory Rate 18 20 Blood Pressure 97/63 L 111/60 Result Diagrams: 02/16/18 05:03 Objective Remarks: GENERAL: Well-nourished, Obese, well-developed patient. CARDIOVASCULAR: Regular rate and rhythm without murmurs, gallops, or rubs. RESPIRATORY: Breath sounds equal bilaterally. No accessory muscle use. ABDOMEN/GI: Abdomen soft, minimally tender at incision site, bowel sounds present. Incision: Clean, dry and intact. Fundus: Firm, non-tender at umbilicus. GENITOURINARY: Patient reported no vaginal bleeding. EXTREMITIES: No cyanosis or edema, non-tender, without signs of DVT. Medications and IVs: Active Medications Al Hydroxide/Mg Hydroxide (Milk Of Magnesia Liq) 30 ml PO DAILY [facility] Last Admin: 02/17/18 14:09 Dose: Not Given Citric Acid/Sodium Citrate (Sodium Citrate/Citric Acid Liq) 30 ml PO WET POUR [employer]PER[employer] [facility] Stop: 02/19/18 08:59 Last Admin: 02/15/18 10:24 Dose: 30 ml Docusate Sodium (Colace) 100 mg PO BID [facility] Last Admin: 02/18/18 08:47 Dose: 100 mg Lactated Ringer's (Lr 1000 Ml Inj) 1,000 mls @ 150 mls/hr IV.CONT .Q6H40M [facility] Last Admin: 02/17/18 16:00 Dose: Not Given Cefazolin Sodium 2,000 mg/ (Sodium Chloride) 100 mls @ 200 mls/hr IV.SIG WET [employer] [facility] Stop: 02/19/18 09:59 Ibuprofen (Motrin) 600 mg PO Q6HR PRN PRN Reason: cramping Last Admin: 02/18/18 04:42 Dose: 600 mg Ketorolac Tromethamine (Toradol Inj) 30 mg IM Q6H PRN PRN Reason: SEE LABEL COMMENTS Ondansetron HCl (Zofran Inj) 4 mg IV.PUSH Q6H PRN PRN Reason: NAUSEA OR VOMITING Last Admin: 02/15/18 16:42 Dose: 4 mg Oxycodone/Acetaminophen (Percocet 5/325 Mg) 1 tab PO Q4H PRN PRN Reason: PAIN SCALE 3 TO 5 Last Admin: 02/17/18 14:13 Dose: 1 tab Oxycodone/Acetaminophen (Percocet 5/325 Mg) 2 tab PO Q4H PRN PRN Reason: PAIN SCALE 6 TO 10 Last Admin: 02/18/18 08:47 Dose: 2 tab Simethicone (Mylicon Chew) 80 mg PO QID PRN PRN Reason: FLATULENCE Last Admin: 02/17/18 14:18 Dose: 80 mg Sodium Chloride (Ns Flush) 2 ml IV.FLUSH PRN PRN PRN Reason: FLUSH AFTER USING IV ACCESS Sodium Chloride (Ns Flush) 2 ml IV.FLUSH BID JOSE MIGUEL Last Admin: 02/18/18 07:24 Dose: 2 ml Assessment and Plan - Diagnosis (1) Previous delivery affecting Code(s): O34.219 - Maternal care for unspecified type scar from previous delivery Status: Acute Plan: 22 yr who is post operative day #3 after repeat on 02/15/18 at 39 weeks gestation. Patient feeling well with no acute findings, patient feels well. Status post Depo injection on 02/16. -- Discharge home --Follow-up outpatient for an incision check in 1 week --Continue iron supplementation and vitamins --Continue to encourage Ambulation --Continue regular diet --Pelvic rest for 6 weeks --Follow-up appointment in 6 weeks (2) Nutrition, metabolism, and development symptoms Code(s): R63.8 - Other symptoms and signs concerning food and fluid intake Status: Acute Plan: Fluids: Not indicated at this time Electrolytes: Replete as needed Nutrition: NPO - Plan The exam, history, and the medical decision-making described in the above note were completed with the assistance of the resident physician. I reviewed and agree with the findings presented. I attest that I had a [id number] encounter with the patient on the same day, and personally performed and documented my assessment and findings in the medical record. - Attending Attestation The exam, history, and the medical decision-making described in the above note were completed with the assistance of the resident physician. I reviewed and agree with the findings presented. I attest that I had a [id number] encounter with the patient on the same day, and personally performed and documented my assessment and findings in the medical record.
== END 2018-02-18 12:11 | disposition home or self-care (01) ==
LOC: H2E 08:05 → H1EA 13:54
PROVIDERS: ADMIT Obstetrics & Gynecology Maternal & Fetal Medicine; ATTEND Obstetrics & Gynecology Maternal & Fetal Medicine